=== PATIENT | male | born 1945 | race Two or more races ===

== ENCOUNTER 2019-03-30 07:30 | Inpatient (IN) | payer OTHER ==
[~2019-03-30] VITALS: Ht 170.2 cm; Wt 66.9 kg
[~2019-03-30 07:30] MED LIST: ACETAMINOPHEN 1000 MG/ISO-OSM 100 ML IV ONE; BACITRACIN 50,000 UNITS/VIAL ONE; BUPIVACAINE HCL/DEX-WATER/PF 0.75% 2 ML AMP ONE; BUPIVACAINE HCL/PF 0.5% 30 ML VIAL ONE; BUPIVACAINE LIPOSOME/PF 1.3%-13.3MG/ML SUSPENSION 20 ML VIAL INJ ONE; DEXAMETHASONE SOD PHOS 4 MG/ML VIAL ONE; POVIDONE-IODINE 30 GM OINTMENT TP ONE; RINGERS SOLUTION,LACTATED 1,000 ML IV ONE; SODIUM CL IRRIG SOLN BAG 3,000 ML IRRIG ONE; TRANEXAMIC ACID 1,000 MG in DEXTROSE 5%-WATER 50 ML IV ONE
[2019-03-30] MEDS ORDERED: BUPIVACAINE HCL/PF 0.5% 30 ML VIAL ONE (07:36)
[2019-03-30 08:11] LABS: BASOPHILS % (AUTO) 0.8 % (0.0-2.0); EOSINOPHILS % (AUTO) 0.5 % (1.0-6.0); HEMATOCRIT 39.4 % (41-53); HEMOGLOBIN 13.3 g/dL (13.5-17.5); LYMPHOCYTES # (AUTO) 2.3 K/uL (1.0-4.8); LYMPHOCYTES % (AUTO) 24.3 % (22.0-44.0); MEAN CORPUSCULAR HEMOGLOBIN 31.9 pg (26.0-34.0); MEAN CORPUSCULAR HGB CONC 33.8 G/dL (31.0-37.0); MEAN CORPUSCULAR VOLUME 94 fL (80-100); MONOCYTES % (AUTO) 10.3 % (2.0-9.0); NEUTROPHILS % (AUTO) 64.1 % (40.0-70.0); PLATELET COUNT (AUTO) 178 K/uL (150-450); RED BLOOD CELL COUNT(AUTO) 4.18 MIL/uL (4.50-5.90); RED CELL DISTRIBUTION WIDTH 13.1 % (11.5-14.5)
[2019-03-30 08:21] LABS: ANION GAP 10 mmol/L (8-16); CALCIUM, TOTAL 9.8 mg/dL (8.8-10.5); CARBON DIOXIDE 28 mmol/L (22-29); CHLORIDE 103 mmol/L (98-107); CREATININE 0.75 mg/dL (0.60-1.30); GLUCOSE,RANDOM 103 mg/dL (70-110); POTASSIUM 3.9 mmol/L (3.5-5.1); SODIUM SERUM 141 mmol/L (136-145); UREA NITROGEN, BLOOD 10 mg/dL (7-18)
[2019-03-30 08:22] LABS: GLOMERULAR FILTR. RATE CALC > 60 mL/min (>60)
[2019-03-30 08:27] LABS: ALANINE AMINOTRANSFERASE 35 U/L (12-78); ALBUMIN 4.3 g/dL (3.4-5.0); ALKALINE PHOSPHATASE 55 U/L (46-116); ASPARTATE AMINOTRANSFERASE 23 U/L (15-37); BILIRUBIN,TOTAL 0.6 mg/dL (0.1-1.0)
[2019-03-30] MEDS ORDERED: TRANEXAMIC ACID 1,000 MG in DEXTROSE 5%-WATER 50 ML IV ONE (08:30)
[2019-03-30 08:31] LABS: PROTHROMBIN TIME 10.6 SEC (9.4-11.6)
[2019-03-30] MEDS ORDERED: HYDROmorphone 2 MG/ML SYRINGE IVP PRN (09:45)
[2019-03-30] MEDS ORDERED: MEPERIDINE-PF 25 MG/ML VIAL IVP PRN (09:45)
[2019-03-30] MEDS ORDERED: FentaNYL CITRATE-PF 100 MCG/2 ML VIAL IVP PRN (09:45)
[2019-03-30] MEDS ORDERED: RINGERS SOLUTION,LACTATED 1,000 ML IV ONE (09:48)
[2019-03-30] MEDS ORDERED: DiphenhydrAMINE HCL 50 MG/ML VIAL IVP PRN (10:30)
[2019-03-30] MEDS ORDERED: BACITRACIN 28.4 GM OINTMENT TP PRN (10:30)
[2019-03-30] MEDS ORDERED: BISACODYL 10 MG RECTAL RECTAL SUPPOSITORY PR PRN (10:30)
[2019-03-30] MEDS ORDERED: ZOLPIDEM TARTRATE 10 MG TABLET PO PRN (10:30)
[2019-03-30] MEDS ORDERED: HYDROmorphone 2 MG/ML SYRINGE ONE (10:55)
[2019-03-30 11:59] VITALS: BP 139/81
[2019-03-30] MEDS: DEXTROSE 5%-LACTATED RINGERS 1,000 ML IV SCH (11:59)
[2019-03-30] MEDS ORDERED: KETAMINE HCL 50 MG/ML 10 ML VIAL IVP ONE (12:00)
[2019-03-30] MEDS ORDERED: MIDAZOLAM HCL 2 MG/2 ML VIAL IVP ONE (12:00)
[2019-03-30] MEDS: HYDROmorphone 2 MG/ML SYRINGE IVP PRN ×2 (12:53→18:33)
[2019-03-30] MEDS: ACETAMINOPHEN 500 MG TABLET PO SCH ×2 (14:49→20:01)
[2019-03-30 15:23] VITALS: BP 137/65
[2019-03-30] MEDS: MetFORMIN HCL 500 MG TABLET PO SCH (17:15)
[2019-03-30] MEDS: CeFAZolin 1 GM/DEXTROSE 50 ML IV SCH (17:15)
[2019-03-30] MEDS ORDERED: PNEUMOCOCCAL VACCINE POLYVALENT 0.5 ML VIAL [PPSV23] IM ONE (17:30)
[2019-03-30 19:55] VITALS: BP 134/65
[2019-03-30] MEDS: FAMOTIDINE 20 MG TABLET PO SCH (20:00)
[2019-03-30] MEDS: CELECOXIB 100 MG CAPSULE PO SCH (20:00)
[2019-03-30] MEDS: DOCUSATE SODIUM 100 MG CAPSULE PO SCH (20:00)
[2019-03-30] MEDS: ATORVASTATIN CALCIUM 20 MG TABLET PO SCH (20:00)
[2019-03-30] MEDS ORDERED: LIDOCAINE 2% 5 ML JELLY ONE (22:03)
[2019-03-30] MEDS ORDERED: DEXAMETHASONE SOD PHOS 4 MG/ML VIAL ONE (22:03)
[2019-03-30] MEDS ORDERED: ONDANSETRON HCL 4 MG/2 ML VIAL ONE (22:03)
[2019-03-30] MEDS ORDERED: PROPOFOL 1% 20 ML VIAL IVP ONE (22:03)
[2019-03-30] MEDS: OxyCODONE HCL/ACETAMINOPHEN 10-325 MG TABLET PO PRN (23:31)
[2019-03-31] VITALS: BP 119/63
[2019-03-31] MEDS: CeFAZolin 1 GM/DEXTROSE 50 ML IV SCH (01:47)
[2019-03-31] MEDS: ACETAMINOPHEN 500 MG TABLET PO SCH ×4 (03:34→20:18)
[2019-03-31 04:38] VITALS: BP 115/58
[2019-03-31] MEDS: DEXTROSE 5%-LACTATED RINGERS 1,000 ML IV SCH (05:51)
[2019-03-31] MEDS: OxyCODONE HCL/ACETAMINOPHEN 10-325 MG TABLET PO PRN ×2 (05:57→17:23)
[2019-03-31 06:07] LABS: BASOPHILS % (AUTO) 0.1 % (0.0-2.0); EOSINOPHILS % (AUTO) 0.1 % (1.0-6.0); HEMATOCRIT 28.6 % (41-53); LYMPHOCYTES # (AUTO) 2.4 K/uL (1.0-4.8); LYMPHOCYTES % (AUTO) 17.7 % (22.0-44.0); MEAN CORPUSCULAR HEMOGLOBIN 32.5 pg (26.0-34.0); MEAN CORPUSCULAR VOLUME 93 fL (80-100); MONOCYTES % (AUTO) 14.6 % (2.0-9.0); NEUTROPHILS # (AUTO) 9.3 K/uL (1.8-7.7); NEUTROPHILS % (AUTO) 67.5 % (40.0-70.0); PLATELET COUNT (AUTO) 163 K/uL (150-450); RED BLOOD CELL COUNT(AUTO) 3.08 MIL/uL (4.50-5.90); RED CELL DISTRIBUTION WIDTH 12.9 % (11.5-14.5)
[2019-03-31 07:15] VITALS: BP 128/62
[2019-03-31] MEDS: FAMOTIDINE 20 MG TABLET PO SCH ×2 (07:56→20:17)
[2019-03-31] MEDS: MetFORMIN HCL 500 MG TABLET PO SCH ×2 (07:58→17:22)
[2019-03-31] MEDS: RIVAROXABAN 10 MG TABLET PO SCH ×2 (07:58→17:23)
[2019-03-31] MEDS: DOCUSATE SODIUM 100 MG CAPSULE PO SCH ×2 (07:58→20:18)
[2019-03-31] MEDS: CELECOXIB 100 MG CAPSULE PO SCH ×2 (07:58→20:18)
[2019-03-31] MEDS: HYDROmorphone 2 MG/ML SYRINGE IVP PRN ×2 (10:59→13:50)
[2019-03-31 12:45] VITALS: BP 122/59
[2019-03-31 15:25] VITALS: BP 123/62
[2019-03-31 20:16] VITALS: BP 123/63
[2019-03-31] MEDS: ATORVASTATIN CALCIUM 20 MG TABLET PO SCH (20:17)
[2019-03-31] MEDS: BENZOCAINE/MENTHOL LOZENGE PO PRN (22:28)
[2019-03-31] MEDS: ONDANSETRON HCL 4 MG/2 ML VIAL IVP PRN (22:29)
[2019-04-01] VITALS (7 sets, daily range): BP systolic 112–129; BP diastolic 59–68
[2019-04-01] MEDS: ACETAMINOPHEN 500 MG TABLET PO SCH ×4 (04:01→20:37)
[2019-04-01] MEDS: MAG HYDROX/AL HYDROX/SIMETH 30 ML SUSP UDCUP PO PRN ×2 (04:46→16:23)
[2019-04-01] MEDS: OxyCODONE HCL/ACETAMINOPHEN 10-325 MG TABLET PO PRN ×2 (04:46→10:45)
[2019-04-01] MEDS: CELECOXIB 100 MG CAPSULE PO SCH ×2 (08:32→20:28)
[2019-04-01] MEDS: DOCUSATE SODIUM 100 MG CAPSULE PO SCH ×2 (08:32→20:28)
[2019-04-01] MEDS: FAMOTIDINE 20 MG TABLET PO SCH ×2 (08:32→20:28)
[2019-04-01] MEDS: MetFORMIN HCL 500 MG TABLET PO SCH ×2 (08:32→17:44)
[2019-04-01] MEDS: RIVAROXABAN 10 MG TABLET PO SCH (17:44)
[2019-04-01] MEDS: ATORVASTATIN CALCIUM 20 MG TABLET PO SCH (20:28)
[2019-04-01] MEDS: BENZOCAINE/MENTHOL LOZENGE PO PRN (20:28)
[2019-04-01] MEDS: ONDANSETRON HCL 4 MG/2 ML VIAL IVP PRN (21:32)
[2019-04-02 01:49] LABS: GLUCOMETER DEV NAME(LOC) 4E.; GLUCOSE,POINT OF CARE 101 MG/DL (70-110)
[2019-04-02] MEDS: ACETAMINOPHEN 500 MG TABLET PO SCH ×3 (03:00→15:24)
[2019-04-02] MEDS: DEXTROSE 5%-LACTATED RINGERS 1,000 ML IV SCH (04:51)
[2019-04-02 05:02] VITALS: BP 111/55
[2019-04-02 06:25] LABS: BASOPHILS % (AUTO) 0.3 % (0.0-2.0); EOSINOPHILS % (AUTO) 0.8 % (1.0-6.0); HEMATOCRIT 28.5 % (41-53); HEMOGLOBIN 9.5 g/dL (13.5-17.5); LYMPHOCYTES # (AUTO) 2.6 K/uL (1.0-4.8); LYMPHOCYTES % (AUTO) 19.9 % (22.0-44.0); MEAN CORPUSCULAR HEMOGLOBIN 31.7 pg (26.0-34.0); MEAN CORPUSCULAR HGB CONC 33.4 G/dL (31.0-37.0); MEAN CORPUSCULAR VOLUME 95 fL (80-100); MONOCYTES # (AUTO) 1.9 K/uL (0.1-1.0); MONOCYTES % (AUTO) 14.8 % (2.0-9.0); NEUTROPHILS # (AUTO) 8.3 K/uL (1.8-7.7); NEUTROPHILS % (AUTO) 64.2 % (40.0-70.0); PLATELET COUNT (AUTO) 163 K/uL (150-450); RED BLOOD CELL COUNT(AUTO) 3.01 MIL/uL (4.50-5.90); RED CELL DISTRIBUTION WIDTH 12.9 % (11.5-14.5)
[2019-04-02 06:52] LABS: ALANINE AMINOTRANSFERASE 19 U/L (12-78); ALBUMIN 2.9 g/dL (3.4-5.0); ALKALINE PHOSPHATASE 53 U/L (46-116); ANION GAP 7 mmol/L (8-16); ASPARTATE AMINOTRANSFERASE 12 U/L (15-37); BILIRUBIN,TOTAL 0.6 mg/dL (0.1-1.0); CARBON DIOXIDE 28 mmol/L (22-29); CHLORIDE 103 mmol/L (98-107); CREATININE 0.75 mg/dL (0.60-1.30); GLUCOSE,RANDOM 99 mg/dL (70-110); POTASSIUM 3.8 mmol/L (3.5-5.1); SODIUM SERUM 138 mmol/L (136-145); TOTAL PROTEIN, SERUM 6.4 g/dL (6.4-8.2); UREA NITROGEN, BLOOD 15 mg/dL (7-18)
[2019-04-02 06:56] LABS: GLOMERULAR FILTR. RATE CALC > 60 mL/min (>60)
[2019-04-02 07:00] VITALS: BP 116/66
[2019-04-02] MEDS: FAMOTIDINE 20 MG TABLET PO SCH (08:30)
[2019-04-02] MEDS: DOCUSATE SODIUM 100 MG CAPSULE PO SCH (08:30)
[2019-04-02] MEDS: MetFORMIN HCL 500 MG TABLET PO SCH (08:30)
[2019-04-02] MEDS: CELECOXIB 100 MG CAPSULE PO SCH (08:30)
[2019-04-02 11:00] VITALS: BP 121/56
== END 2019-04-02 17:40 | DRG 470 ==
LOC: 4E 07:30
PROVIDERS: ADMIT Orthopaedic Surgery; ATTEND Orthopaedic Surgery
PROC: 0SRB0JZ Replacement of Left Hip Joint with Synthetic Substitute, Open Approach (ICD-10-PCS; principal; 2019-03-30 07:30)
DX: M16.12 Unilateral primary osteoarthritis, left hip (principal); E11.9 Type 2 diabetes mellitus without complications; E78.5 Hyperlipidemia, unspecified; D64.9 Anemia, unspecified; Z83.3 Family history of diabetes mellitus
CPT/HCPCS: 72170; 87081; 88300; 93005; 97110; 97116; 97161; 97165; 97530; 97535; C9290; G0238; G0378; J0131; J0690; J1100; J1170; J2250; J2405; J2704; J3490; J7060; J7120